=== PATIENT | male | born 1995 | race Caucasian/White ===

== ENCOUNTER 2018-06-25 03:02 | Emergency (ER) | payer OTHER ==
[~2018-06-25] VITALS: Ht 182.9 cm; Wt 81.6 kg
[2018-06-25 03:11] VITALS: Ht 182.9 cm; Wt 81.6 kg
[2018-06-25 05:39] VITALS: BP 112/70
== END 2018-06-25 05:39 | disposition home or self-care (01) ==
LOC: ED 03:02
DX: J02.0 Streptococcal pharyngitis (principal); F17.210 Nicotine dependence, cigarettes, uncomplicated